=== PATIENT | female | born 1980 | race Caucasian/White ===

== ENCOUNTER → 2017-12-13 | Outpatient (CLI) | payer BC ==
--- NOTE | 2017-12-14 12:29 | RAD ---
EXAM DESCRIPTION: Foot,Left 3 Views CLINICAL HISTORY: 37 years, Female, SWELLING COMPARISON: None TECHNIQUE: AP, lateral, and oblique views of the left foot FINDINGS: Degenerative spurring is seen at the head of the first metatarsal with narrowing of the adjacent joint space. There is no other bone, joint, or soft tissue abnormality observed. There is no radiopaque foreign body. IMPRESSION: Negative for fracture. Electronically signed by: Chivo Retana MD 12/14/2017 12:28 PM CDT
--- NOTE | 2017-12-14 12:30 | RAD ---
EXAM DESCRIPTION: Knee,Left Complete CLINICAL HISTORY: 37 years, Female, KNEE PAIN COMPARISON: None TECHNIQUE: 4 views of the left knee including standing views FINDINGS: No fracture or dislocation. Bones appear normally mineralized with normal trabecular pattern. Mild narrowing of medial and lateral compartments on frontal view with medial more than lateral joint line spurring. Lateral view shows normal position of the patella. Mild posterior patellar spurring is seen. No suprapatellar knee joint effusion. Normal contour of quadriceps and patellar tendons. No abnormal patellar tilt or subluxation on patellar sunrise view. Posterior lateral patellar osteophyte is prominent. IMPRESSION: Degenerative changes as described. Electronically signed by: Chivo Retana MD 12/14/2017 12:29 PM CDT
--- NOTE | 2017-12-14 12:31 | RAD ---
EXAM DESCRIPTION: Pelvis CLINICAL HISTORY: 37 years Female, HIP PAIN COMPARISON: None. TECHNIQUE: Single AP x-ray view of the pelvis and hips FINDINGS:Bones of the pelvic ring appear intact. No hip fracture or dislocation. Calcifications in the pelvis are thought to be phleboliths. Normal bony mineralization and trabecular pattern. No osseous lytic lesion. Lower L-spine appears normal. No sacral fracture. IMPRESSION: Negative. Electronically signed by: Chivo Retana MD 12/14/2017 12:30 PM CDT
== END ==
LOC: RAD 16:17
PROVIDERS: ATTEND Orthopaedic Surgery
DX: M25.562 Pain in left knee (principal); M25.552 Pain in left hip; R22.42 Localized swelling, mass and lump, left lower limb

== ENCOUNTER → 2017-12-17 | Outpatient (CLI) | payer BC ==
--- NOTE | 2017-12-18 08:06 | MRI ---
Study: MRI of the Left Knee. Indication: MENISCUS TEAR Technique: Multiplanar, multi sequence MRI of the left knee was obtained without intravenous contrast. Comparison: None. Findings: ACL, PCL, and lateral collateral ligament complex intact. MCL is lax and bowed indicating sequela of a remote MCL sprain. No acute tear. Scattered mild degenerative signal changes of the medial meniscus and lateral meniscus without tear. Areas of grade 2 chondral thinning throughout the medial and lateral knee compartments. However, at the central weightbearing lateral femoral condyle there is a dominant 12 mm AP by 4 mm transverse grade 4 chondral lesion. In addition, at the lateralmost margin of the lateral tibial plateau there is irregular grade 4 chondral loss with moderate subchondral marrow change. Patellofemoral extensor mechanism intact. Trace lateral patellar tilt and subluxation with edema at the superolateral aspect of Hoffa's fat pad. TT-TG distance measures 17 mm. Irregular grade 3 and 4 chondral loss of the inferior half of the lateral patellar facet noted with mild subchondral marrow change. Adjacent grade 2 chondral changes of the lateral femoral trochlea. Moderate size knee effusion. No acute fracture. Impression: Degenerative signal changes of the menisci without meniscal tearing. 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 Moderate size knee effusion. Remote MCL sprain. Electronically signed by: Freddie Deras MD 12/18/2017 8:04 AM CDT
== END | disposition home or self-care (01) ==
LOC: MRI 10:53
PROVIDERS: ATTEND Orthopaedic Surgery
DX: S83.207A Unspecified tear of unspecified meniscus, current injury, left knee, initial encounter (principal); M25.462 Effusion, left knee

== ENCOUNTER → 2017-12-29 | Outpatient (CLI) | payer BC | LOC: RESP 17:29 | PROVIDERS: ATTEND Orthopaedic Surgery | DX: Z01.818 Encounter for other preprocedural examination (principal) ==

== ENCOUNTER 2018-01-01 05:44 | Day surgery (SDC) | payer BC ==
--- NOTE | 2017-12-30 11:49 | HP ---
CHIEF COMPLAINT: Left knee pain, clicking and popping. HISTORY OF PRESENT ILLNESS: Swati is a 37-year-old female with a history of pain in the knee. She has had clicking and popping in association with this. It has been getting progressively worse and now associated with intermittent swelling. She has had no recent trauma, but states she did have a twisting injury when she was younger. She was told she needed surgery at the time and has occasional giving way, but has had no surgical intervention otherwise. Unfortunately, she does have an autoimmune condition and that has been compounding her pain. Because of her ongoing symptoms, she has requested operative intervention. After discussing the risks, benefits and alternatives to operative intervention, the patient has given informed consent. PAST SURGICAL HISTORY: 1. Laparoscopy. 2. Cholecystectomy. 3. Tubal ligation. MEDICATIONS: 1. Vitamins. 2. Hydroxychloroquine. 3. Leflunomide. 4. Plaquenil. 5. Duloxetine. 6. Folate. 7. Baclofen. ALLERGIES: MOBIC, GABAPENTIN, HYDROCODONE. SOCIAL HISTORY: The patient does not smoke or use any illicit drugs. She does drink on occasion. REVIEW OF SYSTEMS: Negative except as indicated in the History of Present Illness. PHYSICAL EXAMINATION: VITAL SIGNS: Blood pressure 116/83. Pulse 104. Height 5'2". Weight 228 pounds. MENTAL STATUS: The patient is awake, alert, and is able to give a good history and participate in the physical. The patient is oriented to person, place and time. SKIN: Normal tone and turgor. MUSCULOSKELETAL: She is extremely tender to palpation diffusely about the knee and most prominent along the medial aspect. She has intact sensation throughout and it is warm and well perfused. She has no varus/valgus or anterior/posterior laxity. IMAGING: X-rays show arthritis and MRI confirms that. She does have some degenerative fraying of the meniscus. There are no clear displaced fragments. ASSESSMENT: 1. Knee pain with some mechanical symptoms. PLAN: At this point, we have discussed options for her and they would include injections versus knee arthroscopy just given her mechanical symptoms. We have discussed the risks, benefits, and alternatives to that and the patient has given informed consent. #[id number] [facility]
--- NOTE | 2017-12-30 14:14 | RAD ---
EXAM DESCRIPTION: Chest,2 Views CLINICAL HISTORY: pre op COMPARISON: None TECHNIQUE: PA/lateral FINDINGS: There is no acute appearing cardiac or pulmonary abnormality. Heart size is normal with normal pulmonary vascularity. No pleural effusion or pneumothorax. Lungs are clear with no consolidating infiltrate. Lateral view shows intact sternum and T-spine. IMPRESSION: No acute process is identified in the chest. Electronically signed by: Chivo Retana MD 12/30/2017 2:13 PM CDT
[2018-01-01] MEDS ORDERED: SODIUM CHL 0.9% 100ML MINI-BAG 100 ML IVPB ONE (06:12)
[2018-01-01] MEDS ORDERED: LACTATED RINGERS 1,000 ML ONE (06:13)
[2018-01-01] MEDS ORDERED: ceFAZolin SODIUM 1 GM VIAL ONE ×4 (06:13→10:29)
[2018-01-01] MEDS ORDERED: SCOPOLAMINE PATCH 1.5MG 1 EA TD ONE (07:02)
[2018-01-01] MEDS ORDERED: BUPIVACAINE 0.25% W/EPI 50 ML VIAL INJ ONE (09:16)
[2018-01-01] MEDS ORDERED: MIDAZOLAM INJ 2 MG/2 ML VIAL ONE (09:25)
[2018-01-01] MEDS ORDERED: fentaNYL CITRATE INJ 50 MCG/ML AMP ONE (09:26)
[2018-01-01] MEDS ORDERED: ACETAMINOPHEN IV 1000MG 100 ML ONE (09:40)
[2018-01-01] MEDS ORDERED: PROPOFOL 200 MG/20 ML VIAL IV ONE (10:00)
[2018-01-01] MEDS ORDERED: METOCLOPRAMIDE HCL INJ 10 MG/2 ML VIAL IV ONE (10:00)
[2018-01-01] MEDS ORDERED: LIDOCAINE 1% 10 ML VIAL INJ ONE (10:00)
[2018-01-01] MEDS ORDERED: DEXAMETHASONE INJ 10 MG/ML VIAL IV ONE (10:00)
[2018-01-01] MEDS ORDERED: raNITIdine HCL INJ 25 MG/ML VIAL IV ONE (10:00)
[2018-01-01] MEDS ORDERED: ONDANSETRON ODT 8 MG TAB PO ONE (10:00)
[2018-01-01] MEDS ORDERED: VANCOMYCIN HCL INJ 1,000 MG VIAL IVPB ONE (10:14)
[2018-01-01 11:35] VITALS: O2SAT 95
[2018-01-01] MEDS ORDERED: traMADol HCL 50 MG TAB ONE (11:44)
[2018-01-01 12:51] VITALS: BP 114/76; TEMP 98.2
--- NOTE | 2018-01-02 11:12 | OP ---
DATE OF PROCEDURE: 01/01/18 PREOPERATIVE DIAGNOSIS: 1. Chondromalacia. 2. Knee pain. POSTOPERATIVE DIAGNOSIS: 1. Chondromalacia. 2. Arthritis. 3. Knee pain. PROCEDURE: 1. Chondroplasty of the knee. SURGEON: Vitor Garza MD. DELINQUENCY PREVENTION OFFICER: Ajay Sibley CST, SA-C. ANESTHESIA: General. COMPLICATIONS: None. FINDINGS: 1. Large area of chondromalacia involving the medial femoral condyle. 2. Normal ACL and normal PCL. 3. Very large area measuring at least 2 cm by 5 mm on the lateral femoral condyle with defect down to bone involving the articular surface. 4. Normal lateral gutter. 5. Normal suprapatellar pouch. 6. Normal medial gutter. 7. Full thickness defects of the patellofemoral joint with high grade changes in the femoral trochlea. INDICATION: Ms. Olmstead has a long history of knee pain that has been getting progressively worse. She has had diagnosis of rheumatoid arthritis as well as Sjgren's syndrome. Because of the pain and the failure of more conservative measures, she has requested operative intervention. After discussing the risks , benefits and alternatives to that, the patient has given informed consent. PROCEDURE: The patient was brought to the Operating Room and placed in supine position. General anesthesia was induced and the patient's leg was sterilely prepped and draped. Following prepping and draping, standard anteromedial and anterolateral portals were established. Diagnostic arthroscopy was carried out with the above findings. Attention was focused on the medial femoral condyle and a 3.5 mm full radius shaver was used to remove any free flaps of cartilage. Attention was focused on the lateral femoral condyle and a 3.5 mm full radius shaver was used to debride the cartilage down to stable base. It was thoroughly probed that, an accessory superolateral portal was established. A 3.5 mm full radius shaver was used to debride the patella cartilage and the cartilage was probed. There was no loose cartilage and no flaps remaining. The knee was thoroughly irrigated and once again it was examined into the notch region as well and the posterior root of the meniscus. There was no evidence of any loose bodies. The knee was very thoroughly irrigated. The wounds were closed with Nylon suture. Sterile dressings were placed. The patient was awoken from anesthesia and taken to Recovery. POSTOPERATIVE INSTRUCTIONS: The patient will be toe-touch weightbearing and will followup with us in two days. #[id number] [facility]
== END 2018-01-01 12:40 | disposition home or self-care (01) ==
LOC: AMB 05:44
PROVIDERS: ATTEND Orthopaedic Surgery
DX: M17.12 Unilateral primary osteoarthritis, left knee (principal); M94.262 Chondromalacia, left knee; K21.9 Gastro-esophageal reflux disease without esophagitis; E66.01 Morbid (severe) obesity due to excess calories; M06.9 Rheumatoid arthritis, unspecified; M35.00 Sjogren syndrome, unspecified; F41.9 Anxiety disorder, unspecified; Z68.41 Body mass index [BMI] 40.0-44.9, adult; Z87.891 Personal history of nicotine dependence; Z88.5 Allergy status to narcotic agent; Z88.8 Allergy status to other drugs, medicaments and biological substances; Z79.899 Other long term (current) drug therapy
CPT/HCPCS: 01400; 29877; 71046; 80048; 81001; 85025; 93005; J0690; J1100; J2250; J2765; J2780; J3010; J3370; J3490; J7050; J7120